=== PATIENT | male | born 1970 | race Hispanic/Latino ===

== ENCOUNTER 2018-09-02 10:37 | Day surgery (SDC) | payer BC ==
[~2018-09-02 10:37] MED LIST: ANCEF/STERILE WATER 2 GM/20 ML IV NR
[2018-09-02 11:45] VITALS: BP 133/78
[2018-09-02] MEDS ORDERED: LACTATED RINGERS 1,000 ML IV SCH (12:00)
[2018-09-02] MEDS ORDERED: MARCAINE 0.5% INFILTRATI ONE (13:11)
[2018-09-02] MEDS ORDERED: BACITRACIN ONE (13:11)
[2018-09-02] MEDS ORDERED: ANTIBIOTIC OINT TP ONE (13:11)
[2018-09-02] MEDS ORDERED: XYLOCAINE 1%/ EPI 1:100,000 INFILTRATI ONE (13:12)
[2018-09-02] MEDS ORDERED: NACL P/F VIAL (10 ML) 10 ML ONE (13:12)
[2018-09-02] MEDS ORDERED: VERSED IV NR (14:00)
[2018-09-02] MEDS ORDERED: NEURONTIN PO NR (14:00)
--- NOTE | 2018-09-02 15:30 | Anesthesia Day of Surgery ---
Anesthesia Day of Surgery - Day of Surgery Patient Examined: Yes Patient H&P Reviewed: Yes Patient is NPO: Yes
[2018-09-02] MEDS ORDERED: DILAUDID IV PRN (15:31)
[2018-09-02] MEDS ORDERED: DEMEROL IV PRN (15:31)
[2018-09-02] MEDS ORDERED: ZOFRAN IV PRN (15:31)
--- NOTE | 2018-09-02 15:31 | Anesthesia Consultation ---
Anesthesia Consult and Med Hx Date of service: 09/02/18 - Airway ROM Head & Neck: Adequate Mental/Hyoid Distance: Adequate Mallampati Class: Class III Intubation Access Assessment: Possibly Difficult - Pulmonary Exam CTA: Yes - Cardiac Exam Cardiac Exam: RRR - Pre-Operative Health Status ASA Pre-Surgery Classification: ASA3 Proposed Anesthetic Plan: General - Pulmonary Hx Smoking: No Hx Sleep Apnea: Yes (DX SLEEP APNEA WITH CPAP USE.) - Cardiovascular System Hx Hypertension: No - Central Nervous System Hx Back Pain: Yes (WITH PAIN KIRBY LEGS) - Other Systems Hx Cancer: Yes (MELANOMA- RT THUMB REMOVED)
[2018-09-02] MEDS ORDERED: NACL 0.9% 1000 ML 1,000 ML IV SCH (16:00)
== END 2018-09-02 16:36 | disposition home or self-care (01) ==
LOC: OR 10:37
PROVIDERS: ATTEND Radiology Diagnostic Radiology
DX: M54.16 Radiculopathy, lumbar region (principal); G47.30 Sleep apnea, unspecified; K21.9 Gastro-esophageal reflux disease without esophagitis; M19.90 Unspecified osteoarthritis, unspecified site; Z79.899 Other long term (current) drug therapy; Z99.89 Dependence on other enabling machines and devices; Z85.820 Personal history of malignant melanoma of skin; Z98.890 Other specified postprocedural states; Z53.8 Procedure and treatment not carried out for other reasons
CPT/HCPCS: J0690; J2250; J7120